=== PATIENT | male | born 1975 | race Caucasian/White ===

== ENCOUNTER 2020-06-16 08:06 | Outpatient (CLI) | payer BC, SELFPAY ==
--- NOTE | ~2020-06-16 | CT_ITS ---
EXAMINATION: CT abdomen pelvis w con INDICATION: Unspecified abdominal pain TECHNIQUE: Computed tomographic images of the abdomen and pelvis were obtained after the administrati on of 100 cc of Omnipaque 350 intravenous contrast. The dose-length product (DLP) was 570.74 mGy-cm. Automated exposure control and iterative reconstruction technique were employed. COMPARISON: 09/30/2018 FINDINGS: The lung bases are clear. The heart size is normal. The liver, spleen, pancreas, gallbladde r, and adrenal glands are normal. A 9 mm hypoattenuating lesion of the right kidney is too small to c haracterize but likely represents a cyst. The left kidney is unremarkable. No pathologically enlarged abdominal or pelvic lymph nodes are identified. There is no free intraperitoneal gas or evidence of bowel obstruction. The appendix is normal. There is moderate lumbar spondylosis at L5-S1. A tiny fat- containing umbilical hernia is noted. IMPRESSION: 1. No CT correlate for the patient's symptoms. Reviewed, dictated and finalized at location A.
[2020-06-16 09:10] LABS: Estimated Glomerular Filt Rate > 60
== END 2020-06-16 08:07 | disposition home or self-care (01) ==
PROVIDERS: PCP Physician Assistant; Visit Provider Physician Assistant
DX: R10.9 Unspecified abdominal pain (principal); Z87.19 Personal history of other diseases of the digestive system
CPT/HCPCS: 36415; 74177; Q9967

== ENCOUNTER 2020-09-24 08:42 | Outpatient (CLI) | payer BC, SELFPAY ==
--- NOTE | 2020-11-14 12:16 | WPDHOMESLEEP ---
Sleep Study - Home Unattended Date of Study: 09/24/20 Ordering Provider: Reji Butler PA-C Interpreting Physician: Kathy Nicholson MD Home Sleep Study Type: Watch PAT Height: 1.85 m Weight: 92.986 kg Body Mass Index: 27.0 Neck Circumference (inches): 17 [place]: 15 Reason for Sleep Study He can fall asleep easily but can't stay asleep, has been using sleeping medications, antidepressants Sleep History Medardo Moon is a 45 year old man who complains of being able to fall asleep easily however he is not able to stay asleep. This has been going on for about 10 years. He has been using sleep medications, antidepressants and still wakes up during the night, has a difficult time awakening in the morning and has excessive daytime sleepiness. There is a family history with his father having sleep apnea. He rarely snores and is rather loud enough that others complain about it. He rarely awakens at night with heartburn belching or coughing. He rarely awakens from sleep feeling short of breath. He rarely has trouble sleep with a cold. He does not wake up gasping for breath at night. He does not have breathing problems at night observed by others. He constantly sweats excessively at night. He frequently notices his heart pounding or beating irregularly at night. He does not fall asleep during the day, does not fall asleep involuntarily and does not fall asleep while driving. He does not fall asleep during physical effort. He does not have a loss of muscle tone was strong emotion. 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 he does not feel paralyzed on waking or falling asleep. He constantly has vivid dreamlike scenes upon awakening or falling asleep. He is not afraid to go to sleep. He frequently has nightmares and frequently remembers his dreams. He occasionally has racing thoughts. He rarely feels sad or depressed. He frequently feels anxious about things. He frequently has muscular tension. He rarely notices parts of his body jerking. He does not kick at night. He rarely has crawling and aching feelings in his legs. He constantly has bothered by leg pain at night. He Denies having morning jaw pain. He occasionally grind his teeth at night. he frequently has bothered by pain during the day, frequently is awakened by pain at night, frequently wakes up feeling stiff in the morning with sore or achy muscles as well as having pain in the neck and spine joints. He has fatigue, nightmares, depression and feels unable to relax. Normal bedtime is 10:00 a.m. taking 30-45 minutes to fall asleep, typically waking up for 5 minutes to get a drink in use the bathroom or get a snack. He estimates waking up 10-15 times during his sleep time. He wakes up at 7:30 p.m.. His weekend schedule is the same. He does not take naps. Short naps are not refreshing. He is drowsy for 3 hours or longer after waking. Habits: Tobacco 1 pack per day. Caffeine 2 energy drinks daily. Alcohol 1 drink daily when he wakes up. [facility] Past Medical History Medical History (Updated 11/14/20 @ 16:17 by Kathy Nicholson MD) Diabetes mellitus Hypercholesterolemia Hypertension Family History Family History Father Diabetes mellitus Family history of cardiovascular disease Other Family history of throat cancer Social History Social History Smoking packs per day: 1 Smoking cigarettes per day: 20.0 Smoking status: Current every day smoker Tobacco type: cigarettes Second hand tobacco smoke exposure: No Alcohol intake: current Drinks per week: 2 Substance use: never Medications Home Medications Medication Instructions Recorded Confirmed Type cholecalciferol (vitamin D3) 125 5,000 unit PO DAILY 10/01/19 06/17/20 History mcg (5,000 unit) capsule blood sugar di
[2020-11-17 09:53] VITALS: BMI 27.0
== END 2020-09-24 08:43 | disposition home or self-care (01) ==
LOC: ANHCSM 08:44
PROVIDERS: PCP Physician Assistant; Visit Provider Physician Assistant
DX: G47.10 Hypersomnia, unspecified (principal)
CPT/HCPCS: 95800

== ENCOUNTER → 2021-09-01 09:14 | Outpatient (CLI) | payer BC, SELFPAY ==
--- NOTE | ~2021-09-01 | XR_ITS ---
EXAMINATION: XR shoulder LT min 2V INDICATION: Left shoulder pain TECHNIQUE: Four views of the left shoulder are submitted. COMPARISON: None FINDINGS: Normal alignment. No fracture. Glenohumeral and acromioclavicular joint spaces are normal. Soft tissues are unremarkable. IMPRESSION: 1. No acute osseous abnormality. Reviewed, dictated and finalized at location B.
== END ==
PROVIDERS: PCP Internal Medicine; Visit Provider Physician Assistant
DX: M25.512 Pain in left shoulder (principal)
CPT/HCPCS: 73030

== ENCOUNTER → 2021-12-17 07:30 | Outpatient (CLI) | payer BC, SELFPAY ==
--- NOTE | ~2021-12-17 | MR_ITS ---
EXAMINATION: MR shoulder LT wo con DATE: 12/17/2021 08:16 INDICATION: Worsening left shoulder pain and limited range of motion. TECHNIQUE: Magnetic resonance imaging (MRI) of the left shoulder was performed without intravenous co ntrast. Sequences included axial PD-weighted FS FSE, coronal oblique PD-weighted FS FSE, coronal obli que T2-weighted FS FSE, sagittal PD-weighted FS FSE, and sagittal T1-weighted SE. COMPARISON: None. FINDINGS: Coracoacromial arch: The acromion undersurface is curved in morphology (type II). The coracoacromial ligament is normal. M inimal acromioclavicular osteoarthritis. Rotator cuff: The supraspinatus, infraspinatus and teres minor tendons are normal. The subscapularis tendon is norm al. Normal rotator cuff muscle bulk and signal. Biceps tendon, glenoid labrum and glenohumeral cartilage: Long head of the biceps tendon is normal. Glenoid labrum is normal. Glenohumeral cartilage is normal. Fluid: Physiologic amount of fluid in the glenohumeral joint and biceps tendon sheath. No loose osteochondra l bodies. Small amount of fluid in the subacromial/subdeltoid bursa consistent with mild bursitis. Bones: Normal marrow signal with no edema, fracture or abnormal marrow replacing process. IMPRESSION: 1. Minimal left acromioclavicular osteoarthritis. Otherwise unremarkable left shoulder MRI. Reviewed, dictated and finalized at location A. AL IMPLEMENTATION MANAGER IMPRESSION: 1. Minimal left acromioclavicular osteoarthritis. Otherwise unremarkable left [facility] MRI.
== END ==
PROVIDERS: PCP Physician Assistant; Visit Provider Nurse Practitioner
DX: M19.012 Primary osteoarthritis, left shoulder (principal)
CPT/HCPCS: 73221

== ENCOUNTER 2022-11-10 00:50 | Day surgery (SDC) | payer BC, SELFPAY ==
[2022-10-28 13:38] VITALS: BMI 27.6
[2022-11-10 07:45] VITALS: BP 129/91; PULSE 83; RESP 18; TEMP 36; O2SAT 95
[2022-11-10] MEDS: LACTATED RINGERS 1,000 ML 150 ML IV CONT (07:57)
[2022-11-10 07:58] LABS: Glucose Point of Care 192 mg/dl (65-105)
--- NOTE | 2022-11-10 08:41 | WPDANESEPPF ---
Anes - Initial Pre Proc Eval Procedure: Operation Date: 11/10/22 09:15 Proposed Procedures p Screening Colonoscopy - Celso Johnson MD Date/Time: 11/10/22 08:41 Surgeon: Celso Johnson MD Pre Op Diagnosis: neoplasm screening Patient Data Age: 47 Gender: M Height: 1.85 m Weight: 96.2 kg Last Vital Signs Temp 96.8 F L 11/10/22 07:45 Pulse 83 11/10/22 07:45 Resp 18 11/10/22 07:45 BP 129/91 H 11/10/22 07:45 Pulse Ox 95 11/10/22 07:45 O2 Del Method Room Air 11/10/22 07:45 Allergies Allergy/AdvReac Type Severity Reaction Status Date / Time No Known Allergies Allergy Unknown Verified 11/10/22 07:44 Home Medications Medication Instructions Recorded Confirmed Type blood-glucose meter (OneTouch #1 ea 12/12/19 10/28/22 Rx Ultra2 Meter kit) blood sugar diagnostic (Accu-Chek See Rx Instructions .Route 12/01/20 10/28/22 Rx Guide test strips) .COMPLEX #100 strips lancets (OneTouch UltraSoft #100 ea 03/11/21 10/28/22 Rx Lancets) atorvastatin 40 mg tablet 40 mg PO DAILY #90 tabs 08/18/21 10/28/22 Rx potassium iodide 65 mg tablet 130 mg PO DAILY 03/10/22 10/28/22 History lisinopril 10 0.5 tablet PO DAILY #90 tabs 04/05/22 10/28/22 Rx mg-hydrochlorothiazide 12.5 mg tablet dulaglutide 0.75 mg/0.5 mL 0.75 mg (0.5 mL) subcut WEEKLY #6 06/21/22 10/28/22 Rx subcutaneous pen injector mL (Trulicity) gabapentin 300 mg capsule 300 mg PO TID #270 caps 10/04/22 10/28/22 Rx omeprazole 20 mg capsule,delayed 20 mg PO DAILY PRN Heartburn 10/28/22 10/28/22 History release Laboratory Tests 11/10/22 07:51 POC Capillary Glucose 192 mg/dl H mg/dl (65-105) Patient hx anesthesia problems: none Family hx anesthesia problems: none Results Review: All pre-operative results and documents have been reviewed as part of the pre-operative evaluation. [facility] Past Medical History Medical History Diabetes mellitus Hypercholesterolemia Hypertension Family History Family History Father Diabetes mellitus Family history of cardiovascular disease Other Family history of throat cancer Social History Social History Smoking packs per day: 1 Smoking cigarettes per day: 20.0 Years smoked: 20 Smoking pack-years: 20.00 Smoking status: Current every day smoker Tobacco type: cigarettes Second hand tobacco smoke exposure: No Alcohol intake: current Drinks per week: 7 Substance use: never Lack of Transportation: No Lack of Food: Never True Current Housing: I Have Housing Concerned About Future Housing: No Difficulty Paying Gas/Electric Bills: No Difficulty Paying for Meds: No Currently Unemployed: No Education: High School Diploma/GED Difficulty w/ Childcare or Family Care: No Spiritual care concerns: No Anes - Eval Final PreProcedure Day of Procedure 11/10/22 08:41 Patient weight: overweight Heart: regular rate and rhythm Lungs: clear to auscultation Airway: Mallampati scale class II Neurological: alert and oriented Last oral intake: >/= 8 hours ASA classification: III Emergent: no Anesthetic plan: proceed Anesthesia type and monitoring: general GIVS and standard monitoring Results Review: All pre-operative results and documents have been reviewed as part of the pre-operative evaluation. Informed Consent: The patient's anesthetic plan and its attendant risks and benefits were discussed with the patient/family/POA. Questions were solicited and answers provided to the satisfaction of the patient/family/POA.
--- NOTE | 2022-11-10 09:09 | PM.HPGS ---
History of Present Illness History of Present Illness Consent: Risks, benefits, and alternatives have been discussed and questions answered. Patient agrees to proceed with procedure. Chief complaint: neoplasm screening Narrative: Medardo Moon is a 47 year old male here for first screening colonoscopy Review of Systems Constitutional: Constitutional: Denies headache(s) and Denies weakness Eyes: Eyes: Denies blurry vision ENT: Reports Normal hearing present, Denies headache(s) and Denies neck pain Cardiovascular: Cardiovascular: Denies chest pain and Denies dyspnea Respiratory: Respiratory: Denies dyspnea Gastrointestinal: Gastrointestinal: Reports no additional gastrointestinal complaints Genitourinary: Genitourinary: Denies dysuria Musculoskeletal: Musculoskeletal: Denies neck pain Integumentary/Breasts: Skin/Breast: Denies dry skin Neurologic: Reports Normal hearing present, Denies headache(s) and Denies weakness Psychiatric: Psychiatric: Denies anxiety Endocrine: Endocrine: Denies change in body appearance Hematologic/Lymphatic: Hematologic/Lymphatic: Denies easy bleeding Allergic/Immunologic: Allergic/Immunologic: Denies urticaria PMFSH Past Medical History Medical History Diabetes mellitus Hypercholesterolemia Hypertension Family History Family History Father Diabetes mellitus Family history of cardiovascular disease Other Family history of throat cancer Social History Social History Smoking packs per day: 1 Smoking cigarettes per day: 20.0 Years smoked: 20 Smoking pack-years: 20.00 Smoking status: Current every day smoker Tobacco type: cigarettes Second hand tobacco smoke exposure: No Alcohol intake: current Drinks per week: 7 Substance use: never Lack of Transportation: No Lack of Food: Never True Current Housing: I Have Housing Concerned About Future Housing: No Difficulty Paying Gas/Electric Bills: No Difficulty Paying for Meds: No Currently Unemployed: No Education: High School Diploma/GED Difficulty w/ Childcare or Family Care: No Spiritual care concerns: No Meds Home Medications and Allergies Home Medications Medication Instructions Recorded Confirmed Type blood-glucose meter ([employer]such #1 ea 12/12/19 10/28/22 Rx Ultra2 Meter kit) blood sugar diagnostic (Accu-Chek See Rx Instructions .Route 12/01/20 10/28/22 Rx Guide test strips) .COMPLEX #100 strips lancets (OneTouch UltraSoft #100 ea 03/11/21 10/28/22 Rx Lancets) atorvastatin 40 mg tablet 40 mg PO DAILY #90 tabs 08/18/21 10/28/22 Rx potassium iodide 65 mg tablet 130 mg PO DAILY 03/10/22 10/28/22 History lisinopril 10 0.5 tablet PO DAILY #90 tabs 04/05/22 10/28/22 Rx mg-hydrochlorothiazide 12.5 mg tablet dulaglutide 0.75 mg/0.5 mL 0.75 mg (0.5 mL) subcut WEEKLY #6 06/21/22 10/28/22 [facility] gabapentin 300 mg capsule 300 mg PO TID #270 caps 10/04/22 10/28/22 Rx omeprazole 20 mg capsule,delayed 20 mg PO DAILY PRN Heartburn 10/28/22 10/28/22 History release Allergies Allergy/AdvReac Type Severity Reaction Status Date / Time No Known Allergies Allergy Unknown Verified 11/10/22 07:44 Vital Signs Vital Signs - 24 hr 11/10/22 07:45 Temperature 96.8 F L Pulse Rate 83 Respiratory Rate 18 Blood Pressure 129/91 H Pulse Oximetry 95 Oxygen Delivery Room Air Exam Const: General: comfortable and no acute distress HENMT: Face/Nose/Sinus: Normal nares present Eyes: General: appearance normal, both eyes and all related structures Neck: Neck: no JVD Resp: Auscultation: clear to auscultation bilaterally Cardio: Rate: regular rate Rhythm: regular rhythm GI: Inspection: non-distended GI Palp: Yes Soft to palpation Skin: Ge
[2022-11-10 09:29] VITALS: BP 107/71; PULSE 82; RESP 22; TEMP 36; O2SAT 95
[2022-11-10 09:39] VITALS: BP 107/73; PULSE 93; RESP 20; TEMP 36; O2SAT 98
[2022-11-10 09:49] VITALS: BP 118/74; PULSE 78; RESP 18; TEMP 36; O2SAT 98
== END 2022-11-10 09:57 | disposition home or self-care (01) ==
PROVIDERS: PCP Physician Assistant; Visit Provider Internal Medicine Gastroenterology
PROC: 0DJD8ZZ Inspection of Lower Intestinal Tract, Via Natural or Artificial Opening Endoscopic (ICD-10-PCS; CPT 45378; principal; 2022-11-10 09:15)
DX: Z12.11 Encounter for screening for malignant neoplasm of colon (principal); D12.2 Benign neoplasm of ascending colon; K64.8 Other hemorrhoids; E11.9 Type 2 diabetes mellitus without complications; E78.00 Pure hypercholesterolemia, unspecified; I10 Essential (primary) hypertension; F17.210 Nicotine dependence, cigarettes, uncomplicated; Z79.899 Other long term (current) drug therapy
CPT/HCPCS: 45385; 82948; 88305; J2704; J7120

== ENCOUNTER 2025-07-02 07:51 | Outpatient (CLI) | payer BC, SELFPAY ==
--- NOTE | ~2025-07-02 | XR_ITS ---
EXAM/ PROCEDURE: XR hip BI 2V w AP pelvis - 07/02/2025 8:10 CDT HISTORY: 49 years old Male with R10.31 - Right lower quadrant pain COMPARISON: None available TECHNIQUE: Three view(s) FINDINGS/ IMPRESSION: There are no fractures or dislocations.Joint space narrowing, subchondral sclerosis, subchondral cyst formation and osteophyte formation, compatible with mild osteoarthritis. Reviewed, dictated and finalized at location N.
--- NOTE | ~2025-07-02 | XR_ITS ---
XR wrist LT min 3V 07/02/2025 08:16 Indication: Left wrist pain after fall Procedure: 4 views left wrist Comparison: No prior studies for comparison. Findings: There are ossific densities distal to the ulnar styloid, likely related to remote trauma. No acute fracture is identified. No significant soft tissue abnormality. No foreign bodies Impression: 1: No acute fracture identified. Reviewed, dictated and finalized at location O. Impression: 1: No acute fracture identified.
--- OUTSIDE RECORDS SUMMARY | 2025-07-02 07:55 | XMS_ITS | Clinical Summary ---
Author Organization [facility] Address [address] [place] [id number] Care Team Providers Care Precision Grinder Name Role Phone Jesus Leonard MD Primary Care Provider [phone] Paul Yanes DPM Unavailable [phone] Allergies No known active allergies Medications metFORMIN XR (GLUCOPHAGE XR) 500 mg 24 hr tablet Take 500 mg by mouth 2 (two) times a day Active aspirin 81 mg enteric coated tablet Take 81 mg by mouth daily Active albuterol HFA (PROVENTIL HFA,VENTOLIN HFA,PROAIR HFA) 90 mcg/actuation inhaler Take 90 mcg of albuterol by mouth 2 (two) times a day as needed Active atorvastatin (LIPITOR) 40 mg tablet Take 40 mg by mouth nightly 9 Active Invokana 100 mg tablet Take 100 mg by mouth daily [address] (CYMBALTA) 30 mg capsule duloxetine 30 mg capsule,delayed release Take 1 capsule(s) every day by oral route. 9 Active fluticasone propionate (FLONASE) 50 mcg/actuation nasal spray fluticasone propionate 50 mcg/actuation nasal spray,suspension USE 2 SPRAYS IN EACH NOSTRIL ONCE EVERY DAY Active lisinopril-hydr oCHLOROthiazide (ZESTORETIC) 10-12.5 mg per tablet nightly 9 Active Trulicity 0.75 mg/0.5 mL pen injector Tuesday 2 Active gabapentin (NEURONTIN) 300 mg capsule Take 300 mg by mouth 3 (three) times a day Active omeprazole (PriLOSEC) 20 mg capsule Take 20 mg by mouth daily as needed Active cefadroxil (DURICEF) 500 mg capsule Take 1 capsule (500 mg total) by mouth 2 (two) times a day 20 capsule 2 Active HYDROcodone-vandana taminophen (NORCO) 5-325 mg per tabletIndicatio ns:Pain Take 1 tablet by mouth every 6 (six) hours as needed for pain 20 tablet 2 Active ibuprofen (ADVIL,MOTRIN) 800 mg tablet Take 1 tablet (800 mg total) by mouth every 8 (eight) hours as needed for pain 30 tablet 2 Active Active Problems Problem Noted Date Diagnosed Date Benign hypertension 01/14/2022 Diabetes mellitus 01/14/2022 Hyperlipidemia 01/14/2022 Chronic pansinusitis 01/03/2020 Deviated nasal septum 01/03/2020 Sensorineural hearing loss (SNHL) of both ears 0 01/03/2020 Mixed anxiety and depressive disorder 11/04/2017 Diabetic neuropathy 06/21/2017 Vitamin D deficiency 02/08/2017 Tobacco use disorder, continuous 08/25/2016 Surgical History Surgery Date Site/Laterality Comments FLUORO GUIDED INJECTION SHOU LDER LEFT 02/11/2022 Left MYRINGOTOMY W/ TUBES x 3 as child FOOT SURGERY Right states nerve removed Medical History Medical History Date Comments Anxiety Diabetes (HCC) Hypertension PONV (postoperative nausea and vomiting) Cough clear cough in a m cigg smoker states patient GERD (gastroesophageal reflux disease) Type 2 diabetes mellitus Neuropathy Hyperlipidemia Hearing loss History of bronchitis approx 3-4 yrs ago was given albuterol inhaler does not use states patient has one if needed Family History Medical History Relation Name Comments Heart failure Father Kidney disease Father Relation Name Status Comments Father Social History Tobacco Use Types Packs/Day Years Used Date Smoking Tobacco: Every Day Cigarettes 1 20 Smokeless Tobacco: Never AUDIT-C Answer Date Recorded Q1: How often do you have a drink containing alc ohol? 2-4 times a month 06/16/2022 Q2: How many drinks containi ng alcohol do you have on a typical day when you are drinking? 5 or 6 06/16/2022 Q3: How often do you have si x or more drinks on one occasion? 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 Gender Identity Not on file Sexual Orientation Not on file Obstetrics History Last Filed Vital Signs Vital Sign Reading Time Taken Comments Blood Pressure 134/88 06/25/2022 10:15 AM CDT Pulse 74 06/25/2022 10:15 AM CDT Temperature 36.4 C (97.5 F) 06/25/2022 9:45 AM CDT Respiratory Rate 18 06/25/2022 10:15 AM CDT Oxygen Saturation 96% 06/25/2022 10:15 AM CDT Inhaled Oxygen Concentration - - Weight 95.3 kg (210 lb) 01/14/2022 9:12 AM CDT Height 185.4 cm (6' 1) 01/14/2022 9:12 AM CDT Body Mass Index 27.71 01/14/2022 9:12 AM CDT Plan of Treatment Not on file Insurance [employer] OOS [employer] OOS ANTHEM ACCESS [employer] ACCESS OOS Care Teams Precision Grinder Relationship Specialty Start Date End Date Jesus Leonadr MD [address] [place], [place] [id number] PCP - General Internal Medicine 10/06/18 Paul Yanes, DPAndres [address] [facility] [place] [address] Consulting Physician Podiatry 06/25/22
--- OUTSIDE RECORDS SUMMARY | 2025-07-02 07:55 | XMS_ITS | Clinical Summary ---
Author Organization [facility] Address [address] [place] [address] Care Team Providers Care Senior Oracle Database Administrator Name Role Phone Reji Butler PA-C Primary Care Provide r Source Comments [facility],non-owned Affiliates and Associated Physician Practices is amultiple site organization consisting of ambulatory clinics and hospital sitesin [place], [place], [place]. This disclosure is being madepursuant to the Care Everywhere program and may not contain all information available regarding this patient. Last updated 18.[facility] Allergies No known active allergies Medications * Be aware that medications may not be up to date on this document. Alwaysverify current medications with the patient. lisinopril-hydr oCHLOROthiazide (PRINZIDE; ZESTORETIC) 10-12.5 MG tablet TAKE 1/2 (ONE-HALF) TABLET BY MOUTH EVERY DAY 0 9 Active gabapentin (NEURONTIN) 300 MG capsule TAKE 1 CAPSULE BY MOUTH THREE TIMES A DAY 0 9 Active DULoxetine (CYMBALTA) 30 MG capsule 9 Active metFORMIN ER 24hr (GLUCOPHAGE XR) 500 MG tablet metformin ER 500 mg tablet,extende d release 24 hr Active [facility] D3 5000 units capsule Take 1 capsule by mouth once daily 0 9 Active atorvastatin (LIPITOR) 40 MG tablet TAKE 1 TABLET BY MOUTH EVERYDAY AT BEDTIME 0 9 Active meloxicam (MOBIC) 15 MG tablet 9 Active FARXIGA 5 MG tablet TAKE 1 TABLET BY MOUTH EVERY DAY IN THE MORNING 0 9 Active ibuprofen (ADVIL) 200 MG capsule Active Family History Medical History Relation Name Comments Cancer - Other Father Diabetes - Type 2 Father Diabetes - Type 2 Mother Renal Disease Mother Diabetes - Type 2 Sister Migraine Sister Relation Name Status Comments Father Alive Mother Alive Sister Alive Social History Tobacco Use Types Packs/Day Years Used Date Smoking Tobacco: Every Day Cigarettes 1 20 Alcohol Use Standard Drinks/Week Comments Yes 7 (1 standard drink = 0.6 oz pur e alcohol) AUDIT-C Answer Date Recorded Frequency of Alcohol Consumption 4 or more times a week 06/13/2019 Average Number of Drinks 7 to 9 019 Frequency of Binge Drinking Not on file 05/31 Sex and Gender Information Value Date Recorded Sex Assigned at Not on file Legal Sex Male 10:17 AM CDT Gender Identity Not on file Sexual Orientation Not on file Last Filed Vital Signs Vital Sign Reading Time Taken Comments Blood Pressure - - Pulse - - Temperature - - Respiratory Rate - - Oxygen Saturation - - Inhaled Oxygen Concentration - - Weight 86.2 kg (190 lb) 06/13/2019 8:58 AM CDT Height 185.4 cm (6' 1) 06/13/2019 8:58 AM CDT Body Mass Index 25.07 06/13/2019 8:58 AM CDT Plan of Treatment Health Maintenance Due Date Last Done Comments COLOGUARD (AGES 45-75) - COL ON CA SCREENING 1976 COLON MONITORING 1976 COLONOSCOPY - COLON CA SCREENING 1976 CT COLONOGRAPHY - COLON CA SCREENING 1976 Colorectal Cancer Screening 1976 FIT - COLON CA SCREENING 1976 FLEX SIG - COLON CA SCREENING 1976 HIV SCREENING 1991 HEPATITIS C SCREENING 08/03/1994 DTAP/TDAP/TD VACCINES (1 - Tdap) 1995 HEPATITIS B VACCINE (1 of 3 - 19+ 3-dose series) 1995 SCREENING FOR DIABETES 06/13/2019 DEPRESSION SCREENING 10/31/2024 COVID-19 VACCINE (1 - 2023-2 5 season) 2025 INFLUENZA VACCINE (#1) 2025 ZOSTER VACCINE (1 of 2) 2026 HIB VACCINE Aged Out No longer eligi ble based on patient's age to complete this topic HPV VACCINE Aged Out No longer eligi ble based on patient's age to complete this topic MENINGOCOCCAL (Group B) VACC INE SHARED DECISION-MAKING Aged Out No longer eligibl e based on patient's age to complete this topic MENINGOCOCCAL GROUPS A/C/Y/W VACCINE Aged Out No longer eligible b ased on patient's age to complete this topic PNEUMOCOCCAL VACCINE Aged Out No long er eligible based on patient's age to complete this topic Insurance ANTHEM Care Teams Senior Oracle Database Administrator Relationship Specialty Start Date End Date Reji Butler PA-C [address] [place] [address] PCP - General 11/12/22
--- OUTSIDE RECORDS SUMMARY | 2025-07-02 07:55 | XMS_ITS | Clinical Summary ---
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 Active IBUPROFEN ORAL Take by mouth. Active OMEPRAZOLE (PRILOSEC ORAL) Take by mouth. Active naproxen (NAPROSYN) 375 mg Oral tablet Take 1 Tab by mouth 2 times daily with meals. 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 Gender Identity Not on file Sexual Orientation Not on file Last Filed Vital Signs Vital Sign Reading Time Taken Comments Blood Pressure 135/84 09/01/2012 11:09 AM CDT Pulse 72 09/01/2012 11:09 AM CDT Temperature 36.5 C (97.7 F) 09/01/2012 11:09 AM CDT Respiratory Rate 16 09/01/2012 11:09 AM CDT Oxygen Saturation 100% 09/01/2012 11:09 AM CDT Inhaled Oxygen Concentration - - Weight 90.7 kg (200 lb) 09/01/2012 11:09 AM CDT Height 182.9 cm (6') 09/01/2012 11:09 AM CDT Body Mass Index 27.12 09/01/2012 11:09 AM CDT Plan of Treatment Health Maintenance Due Date Last Done Comments DTAP/TDAP/TD VACCINES (1 - Tdap) 1995 HEPATITIS B VACCINES (1 of 3 - 19+ 3-dose series) 05/1995 COLORECTAL SCREENING 2021 Colorectal Cancer Screening 2021 FIT-DNA Q 3 years 2021 FIT/FOBT Q 1 year 2021 Flex Sig/CT Colonography Q 5 years 2021 INFLUENZA VACCINE (#1) 2025 Care Teams Wine Merchant Relationship Specialty Start Date End Date Gui Jones MD PCP - General Internal Medicine 09/01/12
--- OUTSIDE RECORDS SUMMARY | 2025-07-02 07:55 | XMS_ITS | Clinical Summary ---
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 Name Role Phone Unavailable Primary Care Provider Unavailabl e Social History Tobacco Use Types Packs/Day Years Used Date Smoking Tobacco: Never Assessed Sex and Gender Information Value Date Recorded Sex Assigned at Not on file Legal Sex Male 8:21 PM CDT Gender Identity Not on file Sexual Orientation Not on file Last Filed Vital Signs Vital Sign Reading Time Taken Comments Blood Pressure 138/72 01/25/2017 8:48 AM CDT Pulse 86 01/25/2017 8:48 AM CDT Temperature - - Respiratory Rate - - Oxygen Saturation - - Inhaled Oxygen Concentration - - Weight 87.5 kg (193 lb) 01/25/2017 8:48 AM CDT Height 182.9 cm (6') 01/25/2017 8:48 AM CDT Body Mass Index 26.18 01/25/2017 8:48 AM CDT Plan of Treatment Health Maintenance Due Date Last Done Comments Colorectal Cancer Screening Colonoscopy (10 Years) 1976 Annual Physical 1979 Hepatitis C 1994 DTaP, Tdap and Td Vaccines ( 1 - Tdap) 1995 Hepatitis B Vaccines (1 of 3 - 19+ 3-dose series) 1995 COVID-19 Vaccine (2023-2 5 season) 2024 Meningococcal B Vaccine Aged Out No l onger eligible based on patient's age to complete this topic Meningococcal Vaccine Aged Out No tracee ngoc eligible based on patient's age to complete this topic Pneumococcal Vaccine: Pediat rics (0 to 5 Years) and At-Risk Patients (6 to 49 Years) Aged Out No longer eligible b ased on patient's age to complete this topic RSV Immunizations Under 20 Months Aged Out No longer eligible based on patient's age to complete this topic
--- OUTSIDE RECORDS SUMMARY | 2025-07-02 07:55 | XMS_ITS | Encounter Summary ---
Author Organization [facility] Address [address] [place] [id number] Care Team Providers Care Business Process Manager Name Role Phone Unavailable Primary Care Provider Unavailabl e Encounter Details Date Type Department Care Team (Latest Contact Info) Description 09/05/2018 Abstract [facility] , Generic MD Jes Social History Tobacco Use Types Packs/Day Years Used Date Smoking Tobacco: Never Assessed Sex and Gender Information Value Date Recorded Sex Assigned at Not on file Legal Sex Male 8:21 PM CDT Gender Identity Not on file Sexual Orientation Not on file documented as of this encounter Plan of Treatment Not on file documented as of this encounter Visit Diagnoses Not on filedocumented in this encounter
== END 2025-07-02 07:52 | disposition home or self-care (01) ==
PROVIDERS: PCP Internal Medicine; Visit Provider Internal Medicine
DX: R10.31 Right lower quadrant pain (principal); R10.32 Left lower quadrant pain; M25.532 Pain in left wrist
CPT/HCPCS: 73110; 73521